=== PATIENT | male | born 1990 | race Caucasian/White ===

== ENCOUNTER 2019-09-23 08:08 | Emergency (ER) | payer MEDICAID, OTHER ==
[~2019-09-23] VITALS: Ht 165.1 cm; Wt 63.6 kg
[2019-09-23 08:15] VITALS: BP 137/83
[2019-09-23] MEDS ORDERED: LIDOcaine 1% 30ml preserv. free vial IJ ONE (08:25)
[2019-09-23] MEDS ORDERED: bacitracin 15gm ointment TP ONE (08:25)
[2019-09-23] MEDS ORDERED: TETanus/Pertussis (Acell)/Diphther VAC/PF (Tdap-Adult) 0.5ml syringe IMVAC ONE (08:25)
[2019-09-23] MEDS ORDERED: CEPH250T PO (09:11)
== END 2019-09-23 09:26 | disposition home or self-care (01) ==
LOC: ER 08:09
DX: S61.212A Laceration without foreign body of right middle finger without damage to nail, initial encounter (principal); F12.90 Cannabis use, unspecified, uncomplicated; F10.99 Alcohol use, unspecified with unspecified alcohol-induced disorder; Z56.0 Unemployment, unspecified; Z91.030 Bee allergy status; Z79.899 Other long term (current) drug therapy; W31.89XA Contact with other specified machinery, initial encounter; Y93.89 Activity, other specified; Y92.89 Other specified places as the place of occurrence of the external cause; Y99.0 Civilian activity done for income or pay; Y90.9 Presence of alcohol in blood, level not specified
CPT/HCPCS: 12001; 73140; 90471; 90715; 99283; J2001

== ENCOUNTER 2019-09-30 17:07 | Emergency (ER) | payer OTHER, MEDICAID ==
[~2019-09-30] VITALS: Ht 165.1 cm; Wt 63.6 kg
[~2019-09-30 17:07] MED LIST: CEPH250T PO
[2019-09-30 17:20] VITALS: BP 115/69
== END 2019-09-30 17:31 | disposition home or self-care (01) ==
LOC: ER 17:09
DX: S61.212D Laceration without foreign body of right middle finger without damage to nail, subsequent encounter (principal); F12.90 Cannabis use, unspecified, uncomplicated; Z56.0 Unemployment, unspecified; Z91.030 Bee allergy status; W31.89XD Contact with other specified machinery, subsequent encounter
CPT/HCPCS: 99281

== ENCOUNTER 2024-11-27 11:39 | Emergency (ER) | payer MEDICAID, OTHER ==
[~2024-11-27] VITALS: Ht 165.1 cm; Wt 79.1 kg
[2024-11-27 11:48] VITALS: BP 135/78; PULSE 68; O2SAT 99
[2024-11-27 12:55] VITALS: RESP 16
[2024-11-27 14:38] VITALS: TEMP 98.7
== END 2024-11-27 14:40 | disposition home or self-care (01) ==
LOC: ER 11:40
DX: S82.831A Other fracture of upper and lower end of right fibula, initial encounter for closed fracture (principal); F12.90 Cannabis use, unspecified, uncomplicated; M79.661 Pain in right lower leg; Z91.030 Bee allergy status; W23.0XXA Caught, crushed, jammed, or pinched between moving objects, initial encounter; Y93.89 Activity, other specified; Y92.89 Other specified places as the place of occurrence of the external cause; Y99.8 Other external cause status
CPT/HCPCS: 93971; 99284

== ENCOUNTER 2025-01-27 17:34 | Emergency (ER) | payer MEDICAID, OTHER ==
[~2025-01-27] VITALS: Ht 165.1 cm; Wt 79.1 kg
--- NOTE | 2025-01-27 17:42 | Physician Documentation ---
History of Present Illness ~ Stated Complaint: RT HAND/ARM SWOLLEN AND SORE Time Seen by MD: 17:47 Primary Medical Doctor: NONE HPI 58-year-old male presents today with a complaint of right upper extremity swelling since yesterday. Patient states he does have a history of be than an allergy does not think he was bitten by anything but was working outside. Reports pain with swelling denies any fevers. Denies any area with discharge. Denies point tenderness Tetanus within 5 years: No Medication Reconciliation Allergies: Coded Allergies: bee venom protein (honey bee) (Unverified Allergy, Severe, SWELLING, 09/23/19) Past Medical History Past Medical History: No Pertinent History Past Surgical History: no surgical history Alcohol Use: Heavy Drug Use: marijuana Lives In: Home Occupation: unemployed Review of Systems All Other Systems at this time: Reviewed and Negative ROS As stated above in the HPI, otherwise all systems are reviewed and negative. Physical Exam Physical Exam General: Alert, no apparent distress. HEENT: PERRL, EOMI, no injection, moist mucous membranes. Extremities: [id number] circumferential swelling around the right upper extremity starting from the elbow distal to the of fingers, Neurologic: Oriented x4. Psychiatric: Normal mood and affect. Skin: Normal color, warm and dry. No edema, no ecchymosis. Progress Results/Orders Results/Orders Completed Orders - TRE WHITE NP Dexamethasone Inj (Decadron 10mg/Ml Inj) (01/27/25 17:43) Diphenhydramine Capsule (Benadryl Capsul (01/27/25 17:45) Medications Received in ER Medications (Trade) Dose Ordered Sig/Supa Route PRN Reason Start Time Stop Time Status Last Admin Dose Admin (Decadron 10mg/ ml inj) 10 mg ONCE STAT PO 01/27/25 17:43 01/27/25 17:44 DC 01/27/25 17:59 10 MG (Benadryl capsule) 25 mg ONCE ONCE PO 01/27/25 17:45 01/27/25 17:46 DC 01/27/25 17:59 25 MG Vital Signs 01/27/25 01/27/25 17:38 19:06 Temp 98.4 98.6 Pulse 83 80 Resp 15 16 B/P (MAP) 152/84 150/80 Pulse Ox 100 99 O2 Flow Rate 0 Departure Disposition: 01 HOME / SELF CARE / HOMELESS Impression: Primary Impression: Allergic Condition: Stable Discharge Instructions: Insect Bite, Adult, [id number] Referrals: NO PRIMARY CARE PROVIDER (PCP) Education Educated: Patient Educated regarding: diagnosis Signature Scribe Signature: gt Attestation: The note accurately reflects work and decisions made by me.Tre Cárdenas NP 01/27/25 23:53 TRE WHITE NP January 27, 2025 17:42
[2025-01-27] MEDS: diphenhydrAMINE 25mg capsule PO ONE (17:59)
[2025-01-27] MEDS: dexamethasone sod phosphate 10mg/ml inj PO STA (17:59)
[2025-01-27 19:06] VITALS: BP 150/80; PULSE 80; RESP 16; TEMP 98.6; O2SAT 99
== END 2025-01-27 19:06 | disposition home or self-care (01) ==
LOC: ER 17:35
DX: T78.49XA Other allergy, initial encounter (principal); M79.89 Other specified soft tissue disorders; F10.90 Alcohol use, unspecified, uncomplicated; F12.90 Cannabis use, unspecified, uncomplicated; Z91.030 Bee allergy status; Z56.0 Unemployment, unspecified; Y90.9 Presence of alcohol in blood, level not specified; X58.XXXA Exposure to other specified factors, initial encounter
CPT/HCPCS: 99283; J1100; Q0163